=== PATIENT | male | born 1960 ===

== ENCOUNTER 2018-01-09 10:06 | Day surgery (SDC) | payer SELFPAY ==
[2018-01-09] MEDS ORDERED: Lactated Ringer's 500 ML IV ONE (11:17)
[2018-01-09] MEDS ORDERED: Propofol 10 mg/ml Inj (20 ML) ONE (12:41)
[2018-01-09 13:15] VITALS: TEMP 97
[2018-01-09 13:30] VITALS: BP 128/72; PULSE 54; RESP 17; O2SAT 98
== END 2018-01-10 09:20 | disposition home or self-care (01) ==
LOC: H.ENDO 10:06
PROVIDERS: ATTEND Internal Medicine Gastroenterology
DX: Z12.11 Encounter for screening for malignant neoplasm of colon (principal); E03.9 Hypothyroidism, unspecified; I10 Essential (primary) hypertension
CPT/HCPCS: 45378; J2001; J2704; J7120